=== PATIENT | female | born 1975 | race African-American/Black ===

== ENCOUNTER 2023-07-24 14:23 | Observation (INO) ==
[2023-07-24 15:26] VITALS: BMI 25.2
[2023-07-24] MEDS ORDERED: FLUARIX QUAD VACC (FOR AGE 6 MONTHS+) IM ONE (15:27)
[2023-07-24] MEDS ORDERED: TUSSIONEX PENNKINETIC SUSP PO PRN (18:14)
[2023-07-24 18:57] LABS: BASOPHILS # (AUTO) 0.1 X10^3/uL (0.0-0.1); BASOPHILS % (AUTO) 1.4 % (0.2-1.0); EOSINOPHILS # (AUTO) 0.3 x10^3/uL (0.0-0.2); HEMATOCRIT 41.1 % (36.0-47.0); HEMOGLOBIN 13.5 g/dL (12.0-16.0); LYMPHOCYTES # (AUTO) 1.8 X10^3/uL (1.3-2.9); LYMPHOCYTES % (AUTO) 36.7 % (21.0-51.0); MEAN CORPUSCULAR HEMOGLOBIN 28.1 pg (27.0-34.0); MEAN CORPUSCULAR HGB CONC 32.7 g/dL (33.0-35.0); MEAN CORPUSCULAR VOLUME 85.7 fL (80.0-100.0); MEAN PLATELET VOLUME 7.5 fL (7.4-11.0); MONOCYTES # (AUTO) 0.4 x10^3/uL (0.3-0.8); MONOCYTES % (AUTO) 8.8 % (0.0-13.0); NEUTROPHILS # (AUTO) 2.3 x10^3/uL (2.2-4.8); NEUTROPHILS % (AUTO) 47.1 % (42.0-75.0); PLATELET COUNT 321 X10^3/uL (150.0-450.0); RED CELL DISTRIBUTION WIDTH 15.3 % (11.6-16.5)
[2023-07-24 19:11] LABS: ALANINE AMINOTRANSFERASE 16 Units/L (12-78); ALBUMIN 3.7 g/dL (3.4-5.0); ALKALINE PHOSPHATASE 60 Units/L (46-116); ASPARTATE AMINO TRANSFERASE 13 Units/L (15-37); BLOOD UREA NITROGEN 9 mg/dL (7-18); CALCIUM 8.9 mg/dL (8.5-10.1); CARBON DIOXIDE 29.5 mmol/L (21-32); CHLORIDE 99 mmol/L (98-107); CREATININE 0.85 mg/dL (0.55-1.02); GLUCOSE 76 mg/dL (65-99); POTASSIUM 3.3 mmol/L (3.5-5.1); SODIUM 138 mmol/L (136-145); TOTAL PROTEIN 8.4 g/dL (6.4-8.2); eGFR NON BLACK RACES > 60 (>60)
[2023-07-24] MEDS ORDERED: NS 1/2 1,000 ML IV 1,000 ML IV ONE (19:49)
[2023-07-24] MEDS: VSL#3 PO SCH (20:12)
[2023-07-24] MEDS: ROBITUSSIN DM PO SCH (20:12)
[2023-07-24] MEDS: ZyrTEC TAB 10 MG PO SCH (20:12)
[2023-07-24] MEDS: LEVAQUIN PREMIX IV 750 MG 750 MG/150 ML BAG IV SCH (20:14)
[2023-07-24] MEDS: NS 1/2 1,000 ML IV 1,000 ML IV SCH (20:14)
[2023-07-24] MEDS: ELIQUIS PO SCH (20:17)
[2023-07-24] MEDS: HYDROCHLOROTHIAZIDE 25 MG TAB PO SCH (20:19)
[2023-07-24] MEDS ORDERED: MICRO K EXTEN CAP 10 MEQ PO SCH (21:00)
[2023-07-24] MEDS: SOLU-Medrol 40 MG VIAL IVP SCH (23:00)
--- NOTE | 2023-07-25 05:29 | RAD ---
HISTORYPNEUMONIA Relevant Clinical InformationSTUDYCHEST, PA/LAT ADULTCOMPARISONNoneFINDINGSThe trachea is midline. The cardiac silhouette is unremarkable. The lungs are clear without focal infiltrate or effusion. The bony thorax is unremarkable. There is mild dextroscoliosis of the mid thoracic spine.IMPRESSIONNo acute cardiopulmonary findings .Electronically signed by: Marcos Dave (Jul 25, 2023 05:27:54)
[2023-07-25 05:33] LABS: BASOPHILS # (AUTO) 0.1 X10^3/uL (0.0-0.1); BASOPHILS % (AUTO) 2.2 % (0.2-1.0); EOSINOPHILS # (AUTO) 0.3 x10^3/uL (0.0-0.2); EOSINOPHILS % (AUTO) 6.9 % (0.9-2.9); HEMATOCRIT 36.1 % (36.0-47.0); LYMPHOCYTES # (AUTO) 1.4 X10^3/uL (1.3-2.9); LYMPHOCYTES % (AUTO) 31.6 % (21.0-51.0); MEAN CORPUSCULAR HEMOGLOBIN 28.1 pg (27.0-34.0); MEAN CORPUSCULAR HGB CONC 33.1 g/dL (33.0-35.0); MEAN CORPUSCULAR VOLUME 84.9 fL (80.0-100.0); MEAN PLATELET VOLUME 7.5 fL (7.4-11.0); MONOCYTES # (AUTO) 0.5 x10^3/uL (0.3-0.8); MONOCYTES % (AUTO) 10.9 % (0.0-13.0); NEUTROPHILS # (AUTO) 2.2 x10^3/uL (2.2-4.8); NEUTROPHILS % (AUTO) 48.4 % (42.0-75.0); PLATELET COUNT 288 X10^3/uL (150.0-450.0); RED BLOOD COUNT 4.26 X10^6/uL (3.5-5.4); RED CELL DISTRIBUTION WIDTH 15.2 % (11.6-16.5); WHITE BLOOD COUNT 4.5 X10^3/uL (3.6-10.0)
[2023-07-25] MEDS: SOLU-Medrol 40 MG VIAL IVP SCH ×3 (05:45→21:15)
[2023-07-25 05:56] LABS: ALANINE AMINOTRANSFERASE 15 Units/L (12-78); ALBUMIN 3.1 g/dL (3.4-5.0); ALKALINE PHOSPHATASE 50 Units/L (46-116); ASPARTATE AMINO TRANSFERASE 10 Units/L (15-37); BLOOD UREA NITROGEN 9 mg/dL (7-18); CALCIUM 8.2 mg/dL (8.5-10.1); CARBON DIOXIDE 31.1 mmol/L (21-32); CHLORIDE 100 mmol/L (98-107); COR CA(FOR HYPOALB) 8.9 mg/dL (8.5-10.1); CREATININE 0.78 mg/dL (0.55-1.02); GLUCOSE 86 mg/dL (65-99); POTASSIUM 3.3 mmol/L (3.5-5.1); SODIUM 136 mmol/L (136-145); TOTAL PROTEIN 7.3 g/dL (6.4-8.2); eGFR NON BLACK RACES > 60 (>60)
--- NOTE | 2023-07-25 06:02 | RAD ---
HISTORYRSV, SOB Relevant Clinical InformationSTUDYCHEST, 1 [id number]/26/2023FINDINGSThe trachea is midline. The cardiac silhouette is unremarkable. The lungs are clear without focal infiltrate or effusion. The bony thorax is unremarkable. Mild dextroscoliosis mid thoracic spine.IMPRESSIONNo acute cardiopulmonary findings .Electronically signed by: Marcos Dave (Jul 25, 2023 06:01:12)
[2023-07-25] MEDS ORDERED: NS 1/2 1,000 ML IV 1,000 ML IV ONE ×3 (06:11→09:09)
[2023-07-25] MEDS: NS 1/2 1,000 ML IV 1,000 ML IV SCH ×4 (06:20→21:59)
[2023-07-25] MEDS ORDERED: CONSULT PHARMACY - POTASSIUM & MAGNESIUM XX SCH (07:00)
[2023-07-25] MEDS: DUONEB 0.5 MG/3 MG (3 mL) NEB SCH ×4 (08:49→20:05)
[2023-07-25] MEDS: PULMICORT NEB TX 0.5 MG NEB SCH ×2 (08:49→20:05)
[2023-07-25] MEDS: K-DUR TAB 20 MEQ PO SCH ×2 (09:34→10:54)
[2023-07-25] MEDS: ELIQUIS PO SCH ×2 (09:34→20:51)
[2023-07-25] MEDS: NORVASC TAB 10 MG PO SCH (09:34)
[2023-07-25] MEDS: VSL#3 PO SCH (09:34)
[2023-07-25] MEDS: ROBITUSSIN DM PO SCH ×4 (09:34→20:51)
[2023-07-25] MEDS: HYDROCHLOROTHIAZIDE 25 MG TAB PO SCH ×2 (09:35→20:51)
[2023-07-25] MEDS: TYLENOL 325 MG TAB PO PRN ×2 (10:55→16:00)
--- NOTE | 2023-07-25 19:56 | DR.UPDATE ---
H&P Update Prescription drug monitoring program results: PDMP reviewed and no concerns identified H&P Reviewed: Yes Any changes to H&P?: Yes Changes noted:: IS A 48 YEAR OLD PATIENT OF OURS. SHE HAS A PMH OF CATARACTS, VASOVAGAL SYNDROME, RHEUMATOID ARTHRITIS, MONOCLONAL GAMMOPATHY , ANTIPHOSPHOLIPID ANTIBODIES, , HYSTERECTOMY, HIP REPLACEMENT X 3. SHE WAS A DIRECT ADMISSION FOR TREATMENT OF ACUTE BRONCHITIS, FAILED OUTPATIENT TREATMENT. HER INITIAL SYMPTOMS OF FEVER, COUGH, AND SHORTNESS OF BREATH STARTED ON 07/11/23. SHE WAS STARTED ON AUGMENTIN 875/125 MG BID X 7 DAYS AT THAT TIME FOR TX OF SINUSITIS. SHE RETURNED LAST WEEK. AIT RESPIRATORY PANEL WAS DONE AT THAT TIME. SHE WAS POSITIVE FOR RSV. SHE WAS GIVEN COUGH MEDICATION, FLONASE, AND CEFDINIR 300MG BID AT THAT TIME. SHE DENIES IMPROVEMENT IN SYMPTOMS DESPITE COMPLIANCE WITH MEDICATIONS. ON ADMISSION, HER VITALS WERE: 98.3-83-18-97%-123/70. LABS WERE OBTAINED. WBC 5.0, RBC 4.80, HGB 13.5, HCT 41.1, PLT COUNT 321, SODIUM 138, POTASSIUM 3.3, CHLORIDE 99, BUN 9, CREATININE 0.85, GLUCOSE 76, CALCIUM 8.9, TOTAL BILI 0.30, AST 13, ALT 16, ALK PHOS 60, TOTAL PROTEIN 8.4, ALBUMIN 3.7. COVID, RSV, AND INFLUENZA SWABS WERE NEGATIVE. AIT SWAB WAS SENT OUT. BLOOD CULTURES WERE SET UP. A CHEST XRAY WAS OBTAINED AND REVEALED: No acute cardiopulmonary findings. ON ADMISSION, SHE WAS STARTED ON NS AT 75 ML/HR, LEVAQUIN 750MG IV DAILY, SOLU-MEDROL 80MG IV Q8H, DUONEBS QID, PULMICORT NEBS BID, TUSSIONEX 5ML Q12H PRN, TUSSIONEX 5ML Q12H PRN, ROBITUSSIN DM 10ML QID, PROBIOTICS DAILY, AND TYLENOL 650MG PO Q4H PRN. HER HOME MEDICATIONS OF NORVASC, ELIQUIS, ZYRTEC, HCTZ, AND POTASSIUM CHLORIDE WERE RESUMED. OTHERWISE, WE PLAN TO FOLLOW UP WITH AM LABS AND CHEST XRAY AND CONTINUE TO MONITOR. TIME SPENT ON CLINICAL ASSESSMENT, REVIEWING LABS AND IMAGING, DECISION MAKING, AND DOCUMENTATION GREATER THAN 75 MINUTES. Patient was examined?: Yes Vital Signs: Temp Pulse Pulse Resp BP Pulse Ox O2 Del Method 07/25/23 17:00 18 07/25/23 16:00 98.3 F 95 H 18 122/66 99 Room Air 07/25/23 16:00 18 07/25/23 12:00 98.3 F 100 H 18 123/63 100 Room Air 07/25/23 11:52 18 07/25/23 10:55 18 07/25/23 08:49 87 98 07/25/23 08:49 Room Air 07/25/23 07:00 Room Air 07/25/23 07:44 98.0 F 68 18 113/61 99 Room Air 07/25/23 04:00 98.7 F 73 18 113/67 100 Room Air 07/25/23 00:00 97.8 F 67 18 116/61 100 Room Air 07/24/23 21:53 Room Air 07/24/23 20:00 98.3 F 83 18 123/70 97 Room Air 07/24/23 19:00 Room Air 07/24/23 20:00 98.3 F 83 18 123/70 97 07/24/23 18:39 62 20 98 Room Air 07/24/23 16:39 Room Air 07/24/23 15:27 Room Air
[2023-07-25] MEDS: MICRO K EXTEN CAP 10 MEQ PO SCH (20:51)
[2023-07-25] MEDS: ZyrTEC TAB 10 MG PO SCH (20:51)
[2023-07-25] MEDS: LEVAQUIN PREMIX IV 750 MG 750 MG/150 ML BAG IV SCH (20:51)
[2023-07-26] MEDS ORDERED: NS 1/2 1,000 ML IV 1,000 ML IV ONE (02:00)
[2023-07-26] MEDS: NS 1/2 1,000 ML IV 1,000 ML IV SCH ×2 (05:08→12:38)
[2023-07-26] MEDS: SOLU-Medrol 40 MG VIAL IVP SCH (05:08)
[2023-07-26 05:22] LABS: BASOPHILS # (AUTO) 0.1 X10^3/uL (0.0-0.1); BASOPHILS % (AUTO) 0.7 % (0.2-1.0); HEMATOCRIT 37.5 % (36.0-47.0); HEMOGLOBIN 12.3 g/dL (12.0-16.0); LYMPHOCYTES % (AUTO) 10.3 % (21.0-51.0); MEAN CORPUSCULAR HEMOGLOBIN 27.9 pg (27.0-34.0); MEAN CORPUSCULAR HGB CONC 32.9 g/dL (33.0-35.0); MEAN CORPUSCULAR VOLUME 84.8 fL (80.0-100.0); MEAN PLATELET VOLUME 7.5 fL (7.4-11.0); MONOCYTES # (AUTO) 0.3 x10^3/uL (0.3-0.8); MONOCYTES % (AUTO) 2.7 % (0.0-13.0); NEUTROPHILS # (AUTO) 8.3 x10^3/uL (2.2-4.8); NEUTROPHILS % (AUTO) 86.3 % (42.0-75.0); PLATELET COUNT 297 X10^3/uL (150.0-450.0); RED BLOOD COUNT 4.42 X10^6/uL (3.5-5.4); RED CELL DISTRIBUTION WIDTH 15.1 % (11.6-16.5); WHITE BLOOD COUNT 9.6 X10^3/uL (3.6-10.0)
[2023-07-26 05:39] LABS: ALANINE AMINOTRANSFERASE 10 Units/L (12-78); ALBUMIN 3.1 g/dL (3.4-5.0); ALKALINE PHOSPHATASE 51 Units/L (46-116); ASPARTATE AMINO TRANSFERASE 10 Units/L (15-37); BLOOD UREA NITROGEN 8 mg/dL (7-18); CALCIUM 8.2 mg/dL (8.5-10.1); CHLORIDE 102 mmol/L (98-107); COR CA(FOR HYPOALB) 8.9 mg/dL (8.5-10.1); COR NA(FOR HYPERGLY) 138 mmol/L (136-145); CREATININE 0.66 mg/dL (0.55-1.02); GLUCOSE 129 mg/dL (65-99); POTASSIUM 3.6 mmol/L (3.5-5.1); SODIUM 137 mmol/L (136-145); TOTAL PROTEIN 7.4 g/dL (6.4-8.2); eGFR NON BLACK RACES > 60 (>60)
[2023-07-26] MEDS ORDERED: CONSULT PHARMACY - POTASSIUM & MAGNESIUM XX SCH (07:00)
[2023-07-26] MEDS: PULMICORT NEB TX 0.5 MG NEB SCH (08:40)
[2023-07-26] MEDS: DUONEB 0.5 MG/3 MG (3 mL) NEB SCH (08:40)
[2023-07-26 09:43] VITALS: O2SAT 98
[2023-07-26] MEDS: ROBITUSSIN DM PO SCH ×2 (09:58→12:38)
[2023-07-26] MEDS: HYDROCHLOROTHIAZIDE 25 MG TAB PO SCH (09:58)
[2023-07-26] MEDS: MICRO K EXTEN CAP 10 MEQ PO SCH (09:58)
[2023-07-26] MEDS: ELIQUIS PO SCH (09:58)
[2023-07-26] MEDS: VSL#3 PO SCH (09:58)
[2023-07-26] MEDS: NORVASC TAB 10 MG PO SCH (09:58)
[2023-07-26] MEDS: TYLENOL 325 MG TAB PO PRN (09:59)
--- NOTE | 2023-07-26 10:38 | RAD ---
EXAM:AP chestHISTORY:SOBCOMPARISON:July 25, 2023FINDINGS:Stable normal heart size with clear lungs and pleural spaces.IMPRESSION:No significant interval change or acute findings.THIS IS AN ELECTRONICALLY VERIFIED FINAL [id number]/26/2023 10:18 AM - Electronically signed by Rufino Cruz MD
[2023-07-26] MEDS ORDERED: K-DUR TAB 20 MEQ PO SCH (11:00)
[2023-07-26 12:06] VITALS: BP 135/82; PULSE 92; TEMP 98.2
[2023-07-26 12:16] VITALS: RESP 20
--- NOTE | 2023-07-29 16:39 | W.DIS.FURT ---
Summary of Discharge Discharge Summary of Date Date of Exam: 07/26/23 Admission Date Date of Admission: 07/25/23 Admission Diagnosis Hospital Course: Ms. Sierra is a 48-year-old female with a past medical history of vasovagal syndrome, rheumatoid arthritis antiphospholipid antibodies and monoclonal gammopathy presented with upper respiratory symptoms including cough and shortness of breath. She was treated outpatient for bronchitis with Augmentin for 7 days and then came back with similar symptoms a week later. AIT panel done outpatient was positive for RSV. She was then treated with cefdinir but continued to have worsening respiratory symptoms. Her vitals were stable and chest x-ray did not show any acute findings. COVID, RSV and flu swabs were negative. She was started on Levaquin and Solu-Medrol. She also received Duo Nebs and Pulmicort nebs and cough medicine. Patient was feeling better and ambulating in the room. She was not requiring any oxygen. She was stable to be discharged home on p.o. antibiotics and steroids. She will follow-up with PCP in 3 to 5 days. Vital Signs: Vital Signs (72 hours) 07/24/23 15:27 07/24/23 16:39 07/24/23 18:39 Temperature Pulse Rate 62 Pulse Rate [Left Radial] Respiratory Rate 20 Blood Pressure [Right Arm] O2 Sat by Pulse Oximetry 98 Oxygen Delivery Method Room Air Room Air Room Air 07/24/23 20:00 07/24/23 19:00 07/24/23 20:00 Temperature 98.3 F 98.3 F Pulse Rate Pulse Rate [Left Radial] 83 83 Respiratory Rate 18 18 Blood Pressure [Right Arm] 123/70 123/70 O2 Sat by Pulse Oximetry 97 97 Oxygen Delivery Method Room Air Room Air 07/24/23 21:53 07/25/23 00:00 07/25/23 04:00 Temperature 97.8 F 98.7 F Pulse Rate Pulse Rate [Left Radial] 67 73 Respiratory Rate 18 18 Blood Pressure [Right Arm] 116/61 113/67 O2 Sat by Pulse Oximetry 100 100 Oxygen Delivery Method Room Air Room Air Room Air 07/25/23 07:44 07/25/23 07:00 07/25/23 08:49 Temperature 98.0 F Pulse Rate Pulse Rate [Left Radial] 68 Respiratory Rate 18 Blood Pressure [Right Arm] 113/61 O2 Sat by Pulse Oximetry 99 Oxygen Delivery Method Room Air Room Air Room Air 07/25/23 08:49 07/25/23 10:55 07/25/23 11:52 Temperature Pulse Rate 87 Pulse Rate [Left Radial] Respiratory Rate 18 18 Blood Pressure [Right Arm] O2 Sat by Pulse Oximetry 98 Oxygen Delivery Method 07/25/23 12:00 07/25/23 16:00 07/25/23 16:00 Temperature 98.3 F 98.3 F Pulse Rate Pulse Rate [Left Radial] 100 H 95 H Respiratory Rate 18 18 18 Blood Pressure [Right Arm] 123/63 122/66 O2 Sat by Pulse Oximetry 100 99 Oxygen Delivery Method Room Air Room Air 07/25/23 17:00 07/25/23 20:05 07/25/23 20:05 Temperature Pulse Rate 111 H Pulse Rate [Left Radial] Respiratory Rate 18 Blood Pressure [Right Arm] O2 Sat by Pulse Oximetry 93 L Oxygen Delivery Method Room Air 07/25/23 20:00 07/25/23 19:00 07/26/23 00:00 Temperature 98.6 F 97.7 F Pulse Rate Pulse Rate [Left Radial] 98 H 81 Respiratory Rate 20 20 Blood Pressure [Right Arm] 124/64 118/67 O2 Sat by Pulse Oximetry 97 98 Oxygen Delivery Method Room Air Room Air Room Air 07/26/23 04:00 07/26/23 08:40 07/26/23 08:40 Temperature 97.6 F Pulse Rate 96 H Pulse Rate [Left Radial] 89 Respiratory Rate 20 Blood Pressure [Right Arm] 136/73 O2 Sat by Pulse Oximetry 99 98 Oxygen Delivery Method Room Air Room Air 07/26/23 09:59 Temperature Pulse Rate Pulse Rate [Left Radial] Respiratory Rate 18 Blood Pressure [Right Arm] O2 Sat by Pulse Oximetry Oxygen Delivery Method Labs: Laboratory Last Values WBC 9.6 X10^3/uL (3.6-10.0) 07/26/23 04:40 RBC 4.42 X10^6/uL (3.5-5.4) 07/26/23 04:40 Hgb 12.3 g/dL (12.0-16.0) 07/26/23 04:40 Hct 37.5 % (36.0-47.0) 07/26/23 04:40 MCV 84.8 fL (80.0-100.0) 07/26/23 04:40 MCH 27.9 pg (27.0-34.0) 07/26/23 04:40 MCHC 32.9 g/dL (33.0-35.0) L 07/26/23 04:40 RDW 15.1 % (11.6-16.5) 07/26/23 04:40 Plt Count 297 X10^3/uL (150.0-450.0) 07/26/23 04:40 MPV 7.5 fL (7.4-11.0) 07/26/23 04:40 Neut % (Auto) 86.3 % (42.0-75.0) H 07/26/23 04:40 Lymph % (Auto) 10.3 % (21.0-51.0) L 07/26/23 04:40 Snyder % (Auto) 2.7 % (0.0-13.0) 07/26/23 04:40 Eos % (Auto) 0.0 % (0.9-2.9) L 07/26/23 04:40 Baso % (Auto) 0.7 % (0.2-1.0) 07/26/23 04:40 Neut # (Auto) 8.3 x10^3/uL (2.2-4.8) H 07/26/23 04:40 Lymph # (Auto) 1.0 X10^3/uL (1.3-2.9) L 07/26/23 04:40 Snyder # (Auto) 0.3 x10^3/uL (0.3-0.8) 07/26/23 04:40 Eos # (Auto) 0.0 x10^3/uL (0.0-0.2) 07/26/23 04:40 Baso # (Auto) 0.1 X10^3/uL (0.0-0.1) 07/26/23 04:40 Absolute Nucleated RBC 0.1 /100WBC 07/26/23 04:40 Sodium 137 mmol/L (136-145) 07/26/23 04:40 Corrected Sodium 138 mmol/L (136-145) 07/26/23 04:40 Potassium 3.6 mmol/L (3.5-5.1) 07/26/23 04:40 Chloride 102 mmol/L (98-107) 07/26/23 04:40 Carbon Dioxide 28.0 mmol/L (21-32) 07/26/23 04:40 BUN 8 mg/dL (7-18) 07/26/23 04:40 Creatinine 0.66 mg/dL (0.55-1.02) 07/26/23 04:40 Est GFR (MDRD) Af Amer > 60 (>60) 07/26/23 04:40 Est GFR (MDRD) Non-Af > 60 (>60) 07/26/23 04:40 Glucose 129 mg/dL (65-99) H 07/26/23 04:40 Calcium 8.2 mg/dL (8.5-10.1) L 07/26/23 04:40 Corrected Calcium 8.9 mg/dL (8.5-10.1) 07/26/23 04:40 Magnesium 2.2 mg/dL (2.0-2.9) 07/26/23 04:40 Total Bilirubin 0.20 mg/dL (0.2-1.0) 07/26/23 04:40 AST 10 Units/L (15-37) L 07/26/23 04:40 ALT 10 Units/L (12-78) L 07/26/23 04:40 Alkaline Phosphatase 51 Units/L (46-116) 07/26/23 04:40 Total Protein 7.4 g/dL (6.4-8.2) 07/26/23 04:40 Albumin 3.1 g/dL (3.4-5.0) L 07/26/23 04:40 Globulin 4.3 g/dL (2.5-4.5) 07/26/23 04:40 Albumin/Globulin Ratio 0.7 Ratio (1.1-2.1) L 07/26/23 04:40 SARS-CoV-2 (PCR) Negative (NEGATIVE) 07/25/23 05:30 Influenza Type A (PCR) Negative (NEGATIVE) 07/25/23 05:30 Influenza Type B (PCR) Negative (NEGATIVE) 07/25/23 05:30 RSV (PCR) Negative (NEGATIVE) 07/25/23 05:30 Reason For Visit: RSV, FAILED OUTPT TX, MALAISE, FEVER, SOB Discharge Diagnosis All Active Problems (Updated 07/26/23 @ 11:42 by Beverly Kang) Bronchitis (Acute) Plan of Treatment: Continue with present treatment and follow up plan. Pt is to keep follow up appointment as instructed and take medications as ordered. Discharge Medications Discharge Medications: No Known Allergies Allergy (Verified 07/24/23 15:31) CONTINUE taking the following medications amlodipine 10 mg tablet 10 mg PO QDAY 07/24/23 [History] apixaban 5 mg tablet (Eliquis) 5 mg PO BID 07/24/23 [History] cetirizine 10 mg tablet 10 mg PO QPM 07/24/23 [History] hydrochlorothiazide 25 mg tablet 25 mg PO BID 07/24/23 [History] potassium chloride 10 mEq tablet,extended release 10 meq PO BID 07/24/23 [History] New Prescriptions albuterol sulfate 90 mcg/actuation aerosol inhaler 2 puff inhalation Q6H PRN shortness of breath or wheezing #6.7 grams 07/26/23 [Rx] levofloxacin 750 mg tablet 750 mg PO QDAY 4 days #4 tabs 07/26/23 [Rx] methylprednisolone 4 mg tablets in a dose pack See Rx Instructions PO .COMPLEX #21 ea 07/26/23 [Rx] Discharge Disposition Discharge Disposition: To home Discharge Condition: Stable Discharge Plan Discharge Plan Hospital Course: Ms. Sierra is a 48-year-old female with a past medical history of vasovagal syndrome, rheumatoid arthritis antiphospholipid antibodies and monoclonal gammopathy presented with upper respiratory symptoms including cough and shortness of breath. She was treated outpatient for bronchitis with Augmentin for 7 days and then came back with similar symptoms a week later. AIT panel done outpatient was positive for RSV. She was then treated with cefdinir but continued to have worsening respiratory symptoms. Her vitals were stable and chest x-ray did not show any acute findings. COVID, RSV and flu swabs were negative. She was started on Levaquin and Solu-Medrol. She also received DuoNebs and Pulmicort nebs and cough medicine. Patient was feeling better and ambulating in the room. She was not requiring any oxygen. She was stable to be discharged home on p.o. antibiotics and steroids. She will follow-up with PCP in 3 to 5 days. Patient Disposition: 01 HOME, SELF-CARE Condition: Stable Health Concerns: Post Hospitalization: new medications and changes needed to prevent readmission or further decline. Pt educated and given instructions on all concerns. Care Plan Goals: Problem: Infection Goal: Temperature within normal limits. Resolved infection. Instructions: Follow provided instructions. Follow up with primary physician as directed. Contact primary care physician or report to the closest Emergency Room if condition worsens. Plan of Treatment: Continue with present treatment and follow up plan. Pt is to keep follow up appointment as instructed and take medications as ordered. Prescription drug monitoring program results: PDMP reviewed and no concerns identified Prescriptions: New levofloxacin 750 mg tablet 750 mg PO QDAY 4 Days Qty: 4 0RF methylprednisolone 4 mg tablets,dose pack See Rx Instructions .ROUTE .COMPLEX Qty: 21 0RF Rx Instructions: orally per package directions albuterol sulfate 90 mcg/actuation HFA aerosol inhaler 2 puff inhalation Q6H PRN (Reason: shortness of breath or wheezing) Qty: 6.7 0RF Continued cetirizine 10 mg tablet 10 mg PO QPM potassium chloride 10 mEq tablet extended release 10 meq PO BID amlodipine 10 mg tablet 10 mg PO QDAY hydrochlorothiazide 25 mg tablet 25 mg PO BID Eliquis 5 mg tablet 5 mg PO BID Orders to Discharge Patient Discharge Orders: Discharge (Routine); Ordered 07/26/23 Ordered By: Beverly Kang Follow ups/Referrals Follow ups/Referrals: Karma Foley [Nurse Practitioner] - 07/31/23 10:50 am Instructions Instructions: Fever, Adult, Cough, Adult, [id number], Weakness, Respiratory Syncytial Virus Infection, Adult Stand Alone Forms: Excuse From Work or School, Post Hospital Follow Up Care
== END 2023-07-26 12:50 | disposition home or self-care (01) ==
LOC: MED/SURG
PROVIDERS: ADMIT Internal Medicine; ATTEND Internal Medicine
DX: J20.8 Acute bronchitis due to other specified organisms

== ENCOUNTER 2024-01-13 16:58 | Observation (INO) ==
--- NOTE | 2024-01-13 18:34 | EKG ---
Test Reason : dyspnea Blood Pressure : */* mmHG Vent. Rate : 95 BPM Atrial Rate : 95 BPM P-R Int : 138 ms QRS Dur : 76 ms QT Int : 368 ms P-R-T Axes : 78 28 12 degrees QTc Int : 462 ms Normal sinus rhythm Normal ECG When compared with ECG of 01-JAN-2024 14:42, Vent. rate has increased BY 34 BPM T wave inversion no longer evident in Anterior leads Confirmed by Arjun Jean Baptiste MD ([id number]) on 01/14/2024 7:39:41 AM Referred By: Confirmed By: Arjun Jean Baptiste MD
[2024-01-13 18:43] LABS: BASOPHILS # (AUTO) 0.1 X10^3/uL (0.0-0.1); BASOPHILS % (AUTO) 1.2 % (0.2-1.0); EOSINOPHILS # (AUTO) 0.2 x10^3/uL (0.0-0.2); EOSINOPHILS % (AUTO) 3.2 % (0.9-2.9); HEMOGLOBIN 13.1 g/dL (12.0-16.0); LYMPHOCYTES # (AUTO) 2.3 X10^3/uL (1.3-2.9); LYMPHOCYTES % (AUTO) 30.7 % (21.0-51.0); MEAN CORPUSCULAR HEMOGLOBIN 27.5 pg (27.0-34.0); MEAN CORPUSCULAR HGB CONC 32.8 g/dL (33.0-35.0); MEAN CORPUSCULAR VOLUME 83.8 fL (80.0-100.0); MEAN PLATELET VOLUME 7.3 fL (7.4-11.0); MONOCYTES # (AUTO) 0.6 x10^3/uL (0.3-0.8); MONOCYTES % (AUTO) 8.5 % (0.0-13.0); NEUTROPHILS # (AUTO) 4.2 x10^3/uL (2.2-4.8); NEUTROPHILS % (AUTO) 56.4 % (42.0-75.0); PLATELET COUNT 341 X10^3/uL (150.0-450.0); RED BLOOD COUNT 4.77 X10^6/uL (3.5-5.4); RED CELL DISTRIBUTION WIDTH 16.1 % (11.6-16.5); WHITE BLOOD COUNT 7.4 X10^3/uL (3.6-10.0)
[2024-01-13 18:51] LABS: INR 1.01 (0.8-1.3)
[2024-01-13 19:00] LABS: ALANINE AMINOTRANSFERASE 13 Units/L (12-78); ALBUMIN 3.7 g/dL (3.4-5.0); ALKALINE PHOSPHATASE 59 Units/L (46-116); ASPARTATE AMINO TRANSFERASE 14 Units/L (15-37); BLOOD UREA NITROGEN 8 mg/dL (7-18); CALCIUM 8.9 mg/dL (8.5-10.1); CARBON DIOXIDE 30.4 mmol/L (21-32); CHLORIDE 99 mmol/L (98-107); CREATININE 0.71 mg/dL (0.55-1.02); GLUCOSE 87 mg/dL (65-99); SODIUM 137 mmol/L (136-145); TOTAL PROTEIN 8.3 g/dL (6.4-8.2); eGFR NON BLACK RACES > 60 (>60)
[2024-01-13 19:01] LABS: POTASSIUM 2.8 mmol/L (3.5-5.1)
[2024-01-13] MEDS: HEPARIN SODIUM INJ 5000 UNITS IVP ONE (19:30)
[2024-01-13] MEDS: HEPARIN SODIUM IN D5W 25,000 UNITS/500 ML BAG IV PRN (19:30)
[2024-01-13] MEDS ORDERED: CONSULT PHARMACY - POTASSIUM & MAGNESIUM XX SCH (20:00)
[2024-01-13] MEDS: K-DUR TAB 20 MEQ PO SCH (20:55)
[2024-01-13] MEDS: MORPHINE SULFATE INJ 2 MG INJ IVP PRN (21:02)
--- NOTE | 2024-01-13 23:28 | RAD ---
EXAM:CHEST, 1 VIEWHISTORY:chest pain;COMPARISON:January 01, 2024TECHNIQUE:1 frontal view of the chestFINDINGS:Scoliotic curvature of the thoracic spine. The heart size is upper limits of normal. There are interstitial infiltrates present bilaterally. No focal airspace consolidation or pneumothorax..IMPRESSION:Mild bilateral interstitial infiltrates are nonspecific and could represent mild interstitial edema. No focal consolidation or pneumothorax.THIS IS AN ELECTRONICALLY VERIFIED FINAL REPORT01/13/2024 11:25 PM - Electronically signed by Jett Mitchell MD
--- NOTE | 2024-01-14 02:46 | EKG ---
Test Reason : Chest Pain Blood Pressure : */* mmHG Vent. Rate : 66 BPM Atrial Rate : 66 BPM P-R Int : 138 ms QRS Dur : 74 ms QT Int : 458 ms P-R-T Axes : 63 2 14 degrees QTc Int : 480 ms Normal sinus rhythm Normal ECG When compared with ECG of 13-JAN-2024 17:51, (Unconfirmed) No significant change was found Confirmed by Arjun Jean Baptiste MD ([id number]) on 01/14/2024 7:38:57 AM Referred By: Confirmed By: Arjun Jean Baptiste MD
[2024-01-14 03:43] LABS: BASOPHILS # (AUTO) 0.1 X10^3/uL (0.0-0.1); EOSINOPHILS # (AUTO) 0.3 x10^3/uL (0.0-0.2); EOSINOPHILS % (AUTO) 4.4 % (0.9-2.9); HEMATOCRIT 37.4 % (36.0-47.0); HEMOGLOBIN 12.2 g/dL (12.0-16.0); LYMPHOCYTES # (AUTO) 1.9 X10^3/uL (1.3-2.9); MEAN CORPUSCULAR HEMOGLOBIN 27.4 pg (27.0-34.0); MEAN CORPUSCULAR HGB CONC 32.6 g/dL (33.0-35.0); MEAN PLATELET VOLUME 7.3 fL (7.4-11.0); MONOCYTES # (AUTO) 0.8 x10^3/uL (0.3-0.8); MONOCYTES % (AUTO) 11.2 % (0.0-13.0); NEUTROPHILS # (AUTO) 3.7 x10^3/uL (2.2-4.8); NEUTROPHILS % (AUTO) 55.4 % (42.0-75.0); PLATELET COUNT 312 X10^3/uL (150.0-450.0); RED BLOOD COUNT 4.45 X10^6/uL (3.5-5.4); RED CELL DISTRIBUTION WIDTH 15.7 % (11.6-16.5); WHITE BLOOD COUNT 6.8 X10^3/uL (3.6-10.0)
[2024-01-14 03:46] VITALS: BMI 26.4
[2024-01-14 03:52] LABS: ALANINE AMINOTRANSFERASE 12 Units/L (12-78); ALKALINE PHOSPHATASE 51 Units/L (46-116); ASPARTATE AMINO TRANSFERASE 14 Units/L (15-37); BLOOD UREA NITROGEN 8 mg/dL (7-18); CALCIUM 8.4 mg/dL (8.5-10.1); CARBON DIOXIDE 30.7 mmol/L (21-32); CHLORIDE 101 mmol/L (98-107); COR CA(FOR HYPOALB) 9.2 mg/dL (8.5-10.1); CREATININE 0.66 mg/dL (0.55-1.02); GLUCOSE 97 mg/dL (65-99); POTASSIUM 3.2 mmol/L (3.5-5.1); SODIUM 138 mmol/L (136-145); eGFR NON BLACK RACES > 60 (>60)
[2024-01-14] MEDS: HEPARIN SODIUM INJ 5000 UNITS IVP ONE ×2 (04:08→17:00)
--- NOTE | 2024-01-14 08:08 | EKG ---
Test Reason : Chest Pain Blood Pressure : */* mmHG Vent. Rate : 76 BPM Atrial Rate : 76 BPM P-R Int : 146 ms QRS Dur : 80 ms QT Int : 436 ms P-R-T Axes : 72 2 31 degrees QTc Int : 490 ms Normal sinus rhythm Poor R-wave progression ns t abnl Abnormal ECG When compared with ECG of 14-JAN-2024 02:21, t abnl new Confirmed by Arjun Jean Baptiste MD ([id number]) on 01/14/2024 11:21:53 AM Referred By: Confirmed By: Arjun Jean Baptiste MD
[2024-01-14] MEDS ORDERED: NS 250 ML IV 25 ML IV PRN (08:41)
[2024-01-14] MEDS: NORVASC TAB 10 MG PO SCH (10:44)
[2024-01-14] MEDS: ZOSYN VIAL 3.375 GRAMS 3.375 G in NS 100 ML IV 100 ML IV SCH (10:44)
--- NOTE | 2024-01-14 12:36 | CT ---
EXAM:CT HEAD WITHOUT CONTRASTHISTORY:right arm numbness;COMPARISON:None.TECHNIQUE:Axial CT images were obtained through the brain without contrast.All CT scans at this facility use dose modulation, iterative reconstruction, and/or weight based dosing when appropriate to reduce radiation dose to as low as reasonably achievable.FINDINGS:BRAIN: No evidence of acute infarct intra or extraaxial hemorrhage mass effect or hydrocephalus.CALVARIUM: NormalADDITIONAL FINDINGS: The visualized paranasal sinuses and mastoid air cells are clear. Orbits are grossly unremarkable.IMPRESSION:No evidence of acute intracranial process.THIS IS AN ELECTRONICALLY VERIFIED FINAL REPORT01/14/2024 12:32 PM - Electronically signed by Matt Solis MD
--- NOTE | 2024-01-14 13:06 | DR.H&P ---
H&P History & Physical for Day of: H&P Date: 01/14/24 Chief Complaint Chief Complaint: tachycardia, dyspnea Allergies Allergies Allergy/AdvReac Type Severity Reaction Status Date / Time No Known Allergies Allergy Verified 01/01/24 13:28 History of Present Illness History of Present Illness: Ms Sierra is a 48y/o female with a PMH of recurrent DVT, IVC filter, HTN, rheumatoid arthritis, antiphospholipid antibodies and MGUS was directly admitted from Dr James's office due to worsening dyspnea and tachycardia. She had COVID infection about 2 weeks ago and was seen in the ER 01/03/24 for right leg swelling and pain. US was negative for DVT. Patient had a repeat US on 01/07/24 which was also negative for DVT. Patient continued to have weakness and dyspnea so was seen in the PCP office yesterday. She was sent for CTA-chest outpatient and found to have PE. Patient was admitted for further management. She reports having 7 DVTs in her legs and is currently taking Eliquis. She used to be on warfarin but INR could not be within range so she was switched to Eliquis. She also has IVC filter and has never had a PE. She is currently seeing Device [facility] in [place] and is also referred for immunodeficiency work up due to recurrent URIs. Patient was admitted to ICU and started on heparin drip. She had some chest pain/tightness last night. She states she feels something pulling on the left chest area with numbness on side of her neck and left arm. She states pain is better this morning but numbness is still there in the left arm. 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 Labs/imaging reviewed. -Hgb 12.2 Trop x 3 (-) -CTA report from [place] scanned in: solitary thrombus in the distal right main pulmonary artery/segmental branch RLL. Clot burden low. -CXR: bilateral interstitial infiltrates Plan: continue ICU care, continue heparin drip as per protocol. Consult [facility]. Start Rosa, KEDAR panel. Will order CT-brain. Patient had an outpatient appointment with Dr Jean Baptiste for abnormal EKG this Friday, would like to see cardio while admitted. Derrell consult Dr Jean Baptiste. Replace electrolytes as per protocol. Monitor AM labs/imaging. Time spent for clinical assessment, reviewing labs/imaging, physical exam, decision making and documentation greater than 45 mins. Past Medical History Past Medical History: Arthritis, Hypertension and Kidney Stones Past Surgical History Surgical History: , Hysterectomy and Ortho Surgery Family History Family Medical History: Diabetes Mellitus, Cancer and Hypertension Social History Does patient currently use any type of tobacco product: No Have you used tobacco products in the last 12 months: No Type of Tobacco Use: None Does any household member use tobacco: No Alcohol Use: None Drug Use: None Medications Home Medications: Home Medications Medication Instructions Recorded Confirmed Type apixaban 5 mg tablet (Eliquis) 5 mg PO BID 07/24/23 01/13/24 History hydrochlorothiazide 25 mg tablet 25 mg PO BID 07/24/23 01/13/24 History potassium chloride 10 mEq 20 meq PO DAILY 07/24/23 01/13/24 History tablet,extended release amlodipine 10 mg tablet 10 mg PO QDAY 01/01/24 01/13/24 History Labs 01/14/24 03:30 01/14/24 03:30 Labs: Laboratory WBC 6.8 X10^3/uL (3.6-10.0) 01/14/24 03:30 RBC 4.45 X10^6/uL (3.5-5.4) 01/14/24 03:30 Hgb 12.2 g/dL (12.0-16.0) 01/14/24 03:30 Hct 37.4 % (36.0-47.0) 01/14/24 03:30 MCV 84.0 fL (80.0-100.0) 01/14/24 03:30 MCH 27.4 pg (27.0-34.0) 01/14/24 03:30 MCHC 32.6 g/dL (33.0-35.0) L 01/14/24 03:30 RDW 15.7 % (11.6-16.5) 01/14/24 03:30 Plt Count 312 X10^3/uL (150.0-450.0) 01/14/24 03:30 MPV 7.3 fL (7.4-11.0) L 01/14/24 03:30 Neut % (Auto) 55.4 % (42.0-75.0) 01/14/24 03:30 Lymph % (Auto) 28.0 % (21.0-51.0) 01/14/24 03:30 Douglas % (Auto) 11.2 % (0.0-13.0) 01/14/24 03:30 Eos % (Auto) 4.4 % (0.9-2.9) H 01/14/24 03:30 Baso % (Auto) 1.0 % (0.2-1.0) 01/14/24 03:30 Neut # (Auto) 3.7 x10^3/uL (2.2-4.8) 01/14/24 03:30 Lymph # (Auto) 1.9 X10^3/uL (1.3-2.9) 01/14/24 03:30 Douglas # (Auto) 0.8 x10^3/uL (0.3-0.8) 01/14/24 03:30 Eos # (Auto) 0.3 x10^3/uL (0.0-0.2) H 01/14/24 03:30 Baso # (Auto) 0.1 X10^3/uL (0.0-0.1) 01/14/24 03:30 Absolute Nucleated RBC 0.0 /100WBC 01/14/24 03:30 PT 13.1 SECONDS (11.8-14.3) 01/13/24 18:30 INR Target Range - 01/13/24 18:30 INR 1.01 (0.8-1.3) 01/13/24 18:30 APTT 73.3 SECONDS (22.9-36.5) H 01/14/24 10:30 PTT Comment - 01/14/24 10:30 Sodium 138 mmol/L (136-145) 01/14/24 03:30 Corrected Sodium TNP 01/14/24 03:30 Potassium 3.2 mmol/L (3.5-5.1) L 01/14/24 03:30 Chloride 101 mmol/L (98-107) 01/14/24 03:30 Carbon Dioxide 30.7 mmol/L (21-32) 01/14/24 03:30 BUN 8 mg/dL (7-18) 01/14/24 03:30 Creatinine 0.66 mg/dL (0.55-1.02) 01/14/24 03:30 Est GFR (MDRD) Af Amer > 60 (>60) 01/14/24 03:30 Est GFR (MDRD) Non-Af > 60 (>60) 01/14/24 03:30 Glucose 97 mg/dL (65-99) 01/14/24 03:30 Calcium 8.4 mg/dL (8.5-10.1) L 01/14/24 03:30 Corrected Calcium 9.2 mg/dL (8.5-10.1) 01/14/24 03:30 Magnesium 2.3 mg/dL (2.0-2.9) 01/13/24 18:30 Total Bilirubin 0.30 mg/dL (0.2-1.0) 01/14/24 03:30 AST 14 Units/L (15-37) L 01/14/24 03:30 ALT 12 Units/L (12-78) 01/14/24 03:30 Alkaline Phosphatase 51 Units/L (46-116) 01/14/24 03:30 Creatine Kinase 75 Units/L (26-192) 01/14/24 02:40 Troponin I High Sens 5.7 ng/L (4.0-60.0) 01/14/24 02:40 B-Natriuretic Peptide < 5.0 pg/mL (0-79) 01/13/24 18:30 Total Protein 7.0 g/dL (6.4-8.2) 01/14/24 03:30 Albumin 3.0 g/dL (3.4-5.0) L 01/14/24 03:30 Globulin 4.0 g/dL (2.5-4.5) 01/14/24 03:30 Albumin/Globulin Ratio 0.8 Ratio (1.1-2.1) L 01/14/24 03:30 Review of Systems Constitutional: No Symptoms Reported Eyes: No Symptoms Reported ENT: No Symptoms Reported Respiratory: Shortness of Breath and Pleuritic Pain Cardiovascular: Chest Pain Gastrointestinal: No Symptoms Reported Genitourinary: No Symptoms Reported Musculoskeletal: Arm Pain Skin: No Symptoms Reported Neurological: No Symptoms Reported Physical Exam Vital Signs: Vital Signs Temperature 98.4 F Temperature 98.2 F Pulse Rate 91 Pulse Rate 88 Pulse Rate 76 Pulse Rate 81 Pulse Rate 85 Pulse Rate 65 Pulse Rate 74 Pulse Rate 68 Pulse Rate 76 Pulse Rate 75 Pulse Rate 80 Pulse Rate 69 Pulse Rate 69 Pulse Rate 71 Pulse Rate 71 Pulse Rate 71 Pulse Rate 72 Pulse Rate 72 Pulse Rate 71 Pulse Rate 73 Pulse Rate 70 Pulse Rate 74 Pulse Rate 74 Pulse Rate 71 Pulse Rate 76 Respiratory Rate 20 Respiratory Rate 20 Respiratory Rate 20 Respiratory Rate 19 Respiratory Rate 15 Respiratory Rate 26 Respiratory Rate 17 Respiratory Rate 21 Respiratory Rate 18 Respiratory Rate 35 Respiratory Rate 15 Respiratory Rate 15 Respiratory Rate 18 Respiratory Rate 18 Respiratory Rate 18 Respiratory Rate 17 Respiratory Rate 17 Respiratory Rate 17 Respiratory Rate 21 Respiratory Rate 17 Respiratory Rate 17 Respiratory Rate 17 Respiratory Rate 18 Respiratory Rate 18 Blood Pressure 113/61 Blood Pressure 117/69 Blood Pressure 121/67 Blood Pressure 121/67 Blood Pressure 134/63 Blood Pressure 134/63 Blood Pressure 127/67 Blood Pressure 127/67 O2 Sat by Pulse Oximetry 99 O2 Sat by Pulse Oximetry 100 O2 Sat by Pulse Oximetry 98 O2 Sat by Pulse Oximetry 98 O2 Sat by Pulse Oximetry 99 O2 Sat by Pulse Oximetry 100 O2 Sat by Pulse Oximetry 100 O2 Sat by Pulse Oximetry 99 O2 Sat by Pulse Oximetry 98 O2 Sat by Pulse Oximetry 97 O2 Sat by Pulse Oximetry 99 O2 Sat by Pulse Oximetry 100 O2 Sat by Pulse Oximetry 100 O2 Sat by Pulse Oximetry 100 O2 Sat by Pulse Oximetry 100 O2 Sat by Pulse Oximetry 100 O2 Sat by Pulse Oximetry 100 O2 Sat by Pulse Oximetry 100 O2 Sat by Pulse Oximetry 100 O2 Sat by Pulse Oximetry 100 O2 Sat by Pulse Oximetry 100 O2 Sat by Pulse Oximetry 100 O2 Sat by Pulse Oximetry 100 O2 Sat by Pulse Oximetry 100 O2 Sat by Pulse Oximetry 100 Oriented: Normal Eyes: Normal Throat: Normal Respiratory: Clear Throughout Cardiovascular: Tachycardia Auscultation: Bowel Sounds: Normal Palpation: Normal Tenderness: Normal Skin: Normal Musculoskeletal: Normal Psychiatric: Anxiety Mood Description: Anxious Affect: Normal Speech Pattern: Clear and Appropriate Assessment/Plan (1) Pulmonary embolism: Qualifiers: Acute cor pulmonale presence: unspecified Chronicity: acute Pulmonary embolism type: unspecified Qualified Code(s): I26.99 - Other pulmonary embolism without acute cor pulmonale Status: Acute (2) HTN (hypertension): Qualifiers: Hypertension type: primary hypertension Qualified Code(s): I10 - Essential (primary) hypertension Status: Acute (3) Atelectasis: Status: Acute (4) Numbness of right hand: Status: Acute (5) History of DVT (deep vein thrombosis): Status: Acute (6) Presence of IVC filter: Status: Acute (7) Positive cardiolipin antibodies: Status: Acute Review H&P Reviewed: Yes Patient was examined?: Yes
--- NOTE | 2024-01-14 15:08 | DR.CONSULT ---
CONSULT Consultation for Day of: Date: 01/14/24 Chief Complaint Chief Complaint: sob/pleuritic cp/ evedence for PE on CTA Allergies Allergies Allergy/AdvReac Type Severity Reaction Status Date / Time No Known Allergies Allergy Verified 01/01/24 13:28 History of Present Illness History of Present Illness: 48 yo female- hypercoagulable w 7 dvts in past- has IVC filter, none for 15 plus years- also has htn- got covid few weeks ago- came to er twice for leg pain but doppler negative both times- sob/pleuritic cp last few days- CTA: clot in pulm artery- was faithful w eliquis 5 bid-had normal echo and normal SE 08/21, ekg: nsr prwp ns t- 4 trops all negative- echo today: normal lv function, r heart of normal size and function/pa normal too Past Medical History Past Medical History: Arthritis, Hypertension and Kidney Stones Past Surgical History Surgical History: , Hysterectomy and Ortho Surgery Family History Family Medical History: Diabetes Mellitus, Cancer and Hypertension Social History Does patient currently use any type of tobacco product: No Have you used tobacco products in the last 12 months: No Type of Tobacco Use: None Does any household member use tobacco: No Alcohol Use: None Drug Use: None Medications Home Medications: No Known Allergies Allergy (Verified 01/01/24 13:28) Physical Exam Vital Signs: Vital Signs Temperature 98.4 F Pulse Rate 86 Pulse Rate 87 Pulse Rate 81 Pulse Rate 80 Pulse Rate 85 Pulse Rate 79 Pulse Rate 80 Pulse Rate 80 Pulse Rate 78 Pulse Rate 85 Pulse Rate 82 Pulse Rate 79 Pulse Rate 81 Pulse Rate 79 Pulse Rate 78 Pulse Rate 84 Pulse Rate 80 Pulse Rate 83 Pulse Rate 80 Pulse Rate 78 Pulse Rate 84 Pulse Rate 81 Pulse Rate 89 Pulse Rate 91 Pulse Rate 88 Pulse Rate 76 Pulse Rate 81 Pulse Rate 85 Pulse Rate 65 Pulse Rate 74 Pulse Rate 68 Respiratory Rate 26 Respiratory Rate 26 Respiratory Rate 26 Respiratory Rate 26 Respiratory Rate 21 Respiratory Rate 21 Respiratory Rate 24 Respiratory Rate 18 Respiratory Rate 19 Respiratory Rate 31 Respiratory Rate 21 Respiratory Rate 29 Respiratory Rate 21 Respiratory Rate 28 Respiratory Rate 19 Respiratory Rate 22 Respiratory Rate 21 Respiratory Rate 21 Respiratory Rate 20 Respiratory Rate 22 Respiratory Rate 27 Respiratory Rate 20 Respiratory Rate 20 Respiratory Rate 20 Respiratory Rate 19 Respiratory Rate 15 Respiratory Rate 26 Respiratory Rate 17 Blood Pressure 125/79 Blood Pressure 128/76 Blood Pressure 141/77 Blood Pressure 121/79 Blood Pressure 113/61 Blood Pressure 117/69 O2 Sat by Pulse Oximetry 100 O2 Sat by Pulse Oximetry 100 O2 Sat by Pulse Oximetry 100 O2 Sat by Pulse Oximetry 100 O2 Sat by Pulse Oximetry 99 O2 Sat by Pulse Oximetry 100 O2 Sat by Pulse Oximetry 100 O2 Sat by Pulse Oximetry 100 O2 Sat by Pulse Oximetry 100 O2 Sat by Pulse Oximetry 99 O2 Sat by Pulse Oximetry 100 O2 Sat by Pulse Oximetry 100 O2 Sat by Pulse Oximetry 100 O2 Sat by Pulse Oximetry 99 O2 Sat by Pulse Oximetry 99 O2 Sat by Pulse Oximetry 100 O2 Sat by Pulse Oximetry 100 O2 Sat by Pulse Oximetry 100 O2 Sat by Pulse Oximetry 100 O2 Sat by Pulse Oximetry 100 O2 Sat by Pulse Oximetry 100 O2 Sat by Pulse Oximetry 100 O2 Sat by Pulse Oximetry 100 O2 Sat by Pulse Oximetry 99 O2 Sat by Pulse Oximetry 100 O2 Sat by Pulse Oximetry 98 O2 Sat by Pulse Oximetry 98 O2 Sat by Pulse Oximetry 99 O2 Sat by Pulse Oximetry 100 O2 Sat by Pulse Oximetry 100 O2 Sat by Pulse Oximetry 99 alert ox3 nad clear lungs no jvd/bruits rrr no edema labs: hct 37 PTT on heoarin 73 k 3.2 cr 0.6trop x 3 negative bnp< 5 cxr: bord cm, interstitial infiltrates Plan (1) Pulmonary embolism: Status: Acute Qualifiers: Pulmonary embolism type: unspecified Chronicity: acute Acute cor pulmonale presence: unspecified Qualified Code(s): I26.99 - Other pulmonary embolism without acute cor pulmonale Narrative Support Text: pleuritic cp /sob from PE Plan: iv heparin and get her jong CORD[facility] from [facility] for [facility] meds decision (2) HTN (hypertension): Status: Acute Qualifiers: Hypertension type: primary hypertension Qualified Code(s): I10 - Essential (primary) hypertension (3) History of DVT (deep vein thrombosis): Status: Acute (4) Presence of IVC filter: Status: Acute (5) Positive cardiolipin antibodies: Status: Acute (6) Low blood potassium: Status: Acute Plan: replete K (7) Hypertensive heart disease: Status: Acute Plan: cont amlodipine/hctz but add K
--- NOTE | 2024-01-14 15:08 | EKG ---
Test Reason : Chest Pain Blood Pressure : */* mmHG Vent. Rate : 80 BPM Atrial Rate : 80 BPM P-R Int : 138 ms QRS Dur : 74 ms QT Int : 426 ms P-R-T Axes : 67 37 11 degrees QTc Int : 491 ms Normal sinus rhythm Prolonged QT Abnormal ECG When compared with ECG of 14-JAN-2024 07:52, Nonspecific T wave abnormality has replaced inverted T waves in Anterior leads Confirmed by Arjun Jean Baptiste MD ([id number]) on 01/15/2024 7:26:31 AM Referred By: Confirmed By: Arjun Jean Baptiste MD
[2024-01-14] MEDS: K-DUR TAB 20 MEQ PO SCH (16:50)
--- NOTE | 2024-01-15 01:20 | DR.CONSULT ---
CONSULT Consultation for Day of: Date: 01/14/24 Chief Complaint Chief Complaint: SOB, chest pain, CTA of chest demonstrating right main pulmonary artery embolus Allergies Allergies Allergy/AdvReac Type Severity Reaction Status Date / Time No Known Allergies Allergy Verified 01/01/24 13:28 History of Present Illness History of Present Illness: 48 yo female with history of multiple DVTs(4 left leg, 3 right leg) secondary to anticardiolipin antibodies , as well as diagnosis of MGUS(monoclonal gammopathy of unknown origin) , known vena caval filter who is on Eliquis daily and presented to her PCP c/o SOB and chest pain. CTA of chest showed right main pulmonary artery embolus described as low burden with RV/LV ratio of 0.8 consistent with no right heart strain. Seeh in consultation by Dr. Jean Baptiste of cardiology. ECHO showed EF of 70% with no reported evidence of right heart stain. Currently on heparin drip. Recent US of legs showed no DVT currently. Past Medical History Past Medical History: Arthritis, Hypertension and Kidney Stones Additional Medical History: as above Past Surgical History Surgical History: , Hysterectomy and Ortho Surgery Family History Family Medical History: Diabetes Mellitus, Cancer and Hypertension Social History Does patient currently use any type of tobacco product: No Have you used tobacco products in the last 12 months: No Type of Tobacco Use: None Does any household member use tobacco: No Alcohol Use: None Drug Use: None Medications Home Medications: No Known Allergies Allergy amlodipine 10 mg daily Eliquis 5 mg BID HCTZ 25 mg daily KCL 20 mEq daily Review of Systems Constitutional: See HPI Eyes: No Symptoms Reported ENT: No Symptoms Reported Respiratory: See HPI Cardiovascular: Chest Pain Gastrointestinal: No Symptoms Reported Genitourinary: No Symptoms Reported Musculoskeletal: No Symptoms Reported Skin: No Symptoms Reported Neurological: No Symptoms Reported Physical Exam Vital Signs: Vital Signs Temperature 98.1 F Temperature 98.9 F Temperature 98.5 F Pulse Rate 72 Pulse Rate 77 Pulse Rate 79 Pulse Rate 89 Pulse Rate 87 Pulse Rate 86 Pulse Rate 81 Pulse Rate 92 Pulse Rate 87 Pulse Rate 79 Pulse Rate 81 Pulse Rate 80 Pulse Rate 83 Pulse Rate 80 Pulse Rate 87 Pulse Rate 82 Pulse Rate 83 Respiratory Rate 22 Respiratory Rate 23 Respiratory Rate 20 Respiratory Rate 24 Respiratory Rate 25 Respiratory Rate 26 Respiratory Rate 22 Respiratory Rate 33 Respiratory Rate 21 Respiratory Rate 23 Respiratory Rate 21 Respiratory Rate 25 Respiratory Rate 23 Respiratory Rate 30 Respiratory Rate 24 Respiratory Rate 28 Blood Pressure 127/69 Blood Pressure 117/73 Blood Pressure 127/79 Blood Pressure 118/70 Blood Pressure 121/71 Blood Pressure 121/59 Blood Pressure 114/58 Blood Pressure 118/71 O2 Sat by Pulse Oximetry 100 O2 Sat by Pulse Oximetry 100 O2 Sat by Pulse Oximetry 100 O2 Sat by Pulse Oximetry 99 O2 Sat by Pulse Oximetry 99 O2 Sat by Pulse Oximetry 99 O2 Sat by Pulse Oximetry 100 O2 Sat by Pulse Oximetry 100 O2 Sat by Pulse Oximetry 100 O2 Sat by Pulse Oximetry 100 O2 Sat by Pulse Oximetry 99 O2 Sat by Pulse Oximetry 98 O2 Sat by Pulse Oximetry 100 O2 Sat by Pulse Oximetry 99 O2 Sat by Pulse Oximetry 98 O2 Sat by Pulse Oximetry 99 O2 Sat by Pulse Oximetry 100 on 2 liters oxygen Oriented: Normal, Time, Person and Place Eyes: Normal Ear: Normal Nose: Normal Throat: Normal Respiratory: Clear Throughout Cardiovascular: Normal : Normal Auscultation: Bowel Sounds: Normal Palpation: Normal Tenderness: Normal Skin: Normal Musculoskeletal: Normal Psychiatric: Normal Mood Description: Calm Affect: Normal Speech Pattern: Clear and Appropriate Plan (1) Pulmonary embolism: Status: Acute Qualifiers: Acute cor pulmonale presence: unspecified Chronicity: acute Pulmonary embolism type: unspecified Qualified Code(s): I26.99 - Other pulmonary embolism without acute cor pulmonale Narrative Support Text: Patient with pulmonary embolus, low clot burden, No evidence of right heart strain This id best treated with Heparin drip. EKOS catheter not indicated here. I will follow . (2) HTN (hypertension): Status: Acute Qualifiers: Hypertension type: primary hypertension Qualified Code(s): I10 - Essential (primary) hypertension (3) History of DVT (deep vein thrombosis): Status: Acute (4) Presence of IVC filter: Status: Acute (5) Positive cardiolipin antibodies: Status: Acute (6) Low blood potassium: Status: Acute (7) Hypertensive heart disease: Status: Acute
[2024-01-15 05:25] LABS: BASOPHILS # (AUTO) 0.1 X10^3/uL (0.0-0.1); BASOPHILS % (AUTO) 0.9 % (0.2-1.0); EOSINOPHILS # (AUTO) 0.5 x10^3/uL (0.0-0.2); EOSINOPHILS % (AUTO) 7.3 % (0.9-2.9); HEMATOCRIT 35.8 % (36.0-47.0); HEMOGLOBIN 11.5 g/dL (12.0-16.0); LYMPHOCYTES # (AUTO) 1.5 X10^3/uL (1.3-2.9); LYMPHOCYTES % (AUTO) 23.8 % (21.0-51.0); MEAN CORPUSCULAR HEMOGLOBIN 27.2 pg (27.0-34.0); MEAN CORPUSCULAR VOLUME 84.8 fL (80.0-100.0); MEAN PLATELET VOLUME 7.4 fL (7.4-11.0); MONOCYTES # (AUTO) 0.6 x10^3/uL (0.3-0.8); MONOCYTES % (AUTO) 9.6 % (0.0-13.0); NEUTROPHILS # (AUTO) 3.8 x10^3/uL (2.2-4.8); NEUTROPHILS % (AUTO) 58.4 % (42.0-75.0); PLATELET COUNT 311 X10^3/uL (150.0-450.0); RED BLOOD COUNT 4.22 X10^6/uL (3.5-5.4); RED CELL DISTRIBUTION WIDTH 16.1 % (11.6-16.5); WHITE BLOOD COUNT 6.5 X10^3/uL (3.6-10.0)
[2024-01-15 05:43] LABS: ALANINE AMINOTRANSFERASE 12 Units/L (12-78); ALBUMIN 2.6 g/dL (3.4-5.0); ALKALINE PHOSPHATASE 43 Units/L (46-116); ASPARTATE AMINO TRANSFERASE 10 Units/L (15-37); BLOOD UREA NITROGEN 10 mg/dL (7-18); CALCIUM 8.1 mg/dL (8.5-10.1); CARBON DIOXIDE 29.2 mmol/L (21-32); CHLORIDE 105 mmol/L (98-107); COR CA(FOR HYPOALB) 9.2 mg/dL (8.5-10.1); CREATININE 0.71 mg/dL (0.55-1.02); GLUCOSE 92 mg/dL (65-99); POTASSIUM 3.3 mmol/L (3.5-5.1); SODIUM 142 mmol/L (136-145); TOTAL PROTEIN 6.5 g/dL (6.4-8.2); eGFR NON BLACK RACES > 60 (>60)
[2024-01-15] MEDS ORDERED: CONSULT PHARMACY - POTASSIUM & MAGNESIUM XX SCH (07:00)
--- NOTE | 2024-01-15 07:45 | RAD ---
EXAM:Portable chestHISTORY:Monoclonal gammopathyCOMPARISON:01/13/2024FINDINGS: Patient is rotated to the left. Heart is upper limits normal in size. No congestive heart failure identified. No acute infiltrates or pleural effusions identified. Bony thorax is unremarkable with exception of thoracic dextroscoliosis.IMPRESSION:No acute infiltrates or congestive heart failure on today's examinationTHIS IS AN ELECTRONICALLY VERIFIED FINAL REPORT01/15/2024 7:33 AM - Electronically signed by Garo Henry MD
[2024-01-15] MEDS: COLACE CAP 100 MG PO PRN (09:38)
[2024-01-15] MEDS: MILK OF MAGNESIA PO PRN (09:39)
--- NOTE | 2024-01-15 10:43 | PCM.PROG ---
Progress Note Progress Note for Day of Date of Exam: 01/15/24 Subjective Subjective: Pt is a 48y/o female with a PMH of recurrent DVT, IVC filter, HTN, rheumatoid arthritis, antiphospholipid antibodies and MGUS that is admitted for pulmonary embolism. This morning she reports feeling a little better. Patient is in the ICU and on a heparin drip. Vascular surgery consulted-Dr Salomon, pt not a candidate for EKOS. Cardiology consulted-Dr Jean Baptiste, will contact patient's mems integration engineer from [place] about anticoagulation recommendations. No acute events overnight. Labs/imaging reviewed. - WBC 6.5, hemoglobin 11.5, platelets 311, sodium 142, potassium 3.3, creatinine 0.71, glucose 92, Mag 2.2 - CTA report from [place] scanned in: solitary thrombus in the distal right main pulmonary artery/segmental branch RLL. Clot burden low. - CT brain: no acute intracranial findings. - CXR: no acute infiltrates Plan: continue ICU care, continue heparin drip as per protocol. Continue Zosyn, AIT panel pending. Replace electrolytes as per protocol. F/u cardiology recommendations. Monitor AM labs/imaging. Time spent for clinical assessment, reviewing labs/imaging, physical exam, decision making and documentation greater than 45 mins. Past Medical Family Social History Allergies: Allergies No Known Allergies Allergy (Verified 01/01/24 13:28) Review of Systems ROS changes noted: see HPI Vital Signs and I&O's Vital Signs: Vital Signs Temperature 97.6 F Temperature 98.1 F Pulse Rate 80 Pulse Rate 77 Pulse Rate 77 Pulse Rate 66 Pulse Rate 67 Pulse Rate 77 Pulse Rate 71 Pulse Rate 68 Respiratory Rate 20 Respiratory Rate 18 Respiratory Rate 19 Respiratory Rate 18 Respiratory Rate 18 Respiratory Rate 16 Respiratory Rate 18 Blood Pressure 129/71 Blood Pressure 121/70 Blood Pressure 105/55 Blood Pressure 111/56 Blood Pressure 118/71 Blood Pressure 131/70 Blood Pressure 128/61 O2 Sat by Pulse Oximetry 100 O2 Sat by Pulse Oximetry 100 O2 Sat by Pulse Oximetry 100 O2 Sat by Pulse Oximetry 98 O2 Sat by Pulse Oximetry 98 O2 Sat by Pulse Oximetry 100 O2 Sat by Pulse Oximetry 100 O2 Sat by Pulse Oximetry 100 Intake and Output: Intake & Output 01/12/24 01/13/24 01/14/24 01/15/24 23:59 23:59 23:59 23:59 Intake Total 324 / 324 1282 / 1282 294 / 294 Balance 324 / 324 1282 / 1282 294 / 294 Physical Exam Oriented: Normal, Time, Person and Place Eyes: Normal Ear: Normal Nose: Normal Throat: Normal Respiratory: Normal Cardiovascular: Normal : Normal Auscultation: Bowel Sounds: Normal Tenderness: Normal Skin: Normal Musculoskeletal: Normal Psychiatric: Normal Mood Description: Calm Affect: Normal Speech Pattern: Clear and Appropriate Laboratory and Diagnostics 01/15/24 05:00 01/15/24 05:00 Labs: Laboratory WBC 6.5 X10^3/uL (3.6-10.0) 01/15/24 05:00 RBC 4.22 X10^6/uL (3.5-5.4) 01/15/24 05:00 Hgb 11.5 g/dL (12.0-16.0) L 01/15/24 05:00 Hct 35.8 % (36.0-47.0) L 01/15/24 05:00 MCV 84.8 fL (80.0-100.0) 01/15/24 05:00 MCH 27.2 pg (27.0-34.0) 01/15/24 05:00 MCHC 32.0 g/dL (33.0-35.0) L 01/15/24 05:00 RDW 16.1 % (11.6-16.5) 01/15/24 05:00 Plt Count 311 X10^3/uL (150.0-450.0) 01/15/24 05:00 MPV 7.4 fL (7.4-11.0) 01/15/24 05:00 Neut % (Auto) 58.4 % (42.0-75.0) 01/15/24 05:00 Lymph % (Auto) 23.8 % (21.0-51.0) 01/15/24 05:00 [place] % (Auto) 9.6 % (0.0-13.0) 01/15/24 05:00 Eos % (Auto) 7.3 % (0.9-2.9) H 01/15/24 05:00 Baso % (Auto) 0.9 % (0.2-1.0) 01/15/24 05:00 Neut # (Auto) 3.8 x10^3/uL (2.2-4.8) 01/15/24 05:00 Lymph # (Auto) 1.5 X10^3/uL (1.3-2.9) 01/15/24 05:00 [place] # (Auto) 0.6 x10^3/uL (0.3-0.8) 01/15/24 05:00 Eos # (Auto) 0.5 x10^3/uL (0.0-0.2) H 01/15/24 05:00 Baso # (Auto) 0.1 X10^3/uL (0.0-0.1) 01/15/24 05:00 Absolute Nucleated RBC 0.0 /100WBC 01/15/24 05:00 PT 13.1 SECONDS (11.8-14.3) 01/13/24 18:30 INR Target Range - 01/13/24 18:30 INR 1.01 (0.8-1.3) 01/13/24 18:30 APTT 93.5 SECONDS (22.9-36.5) H 01/15/24 05:00 PTT Comment - 01/15/24 05:00 Sodium 142 mmol/L (136-145) 01/15/24 05:00 Corrected Sodium TNP 01/15/24 05:00 Potassium 3.3 mmol/L (3.5-5.1) L 01/15/24 05:00 Chloride 105 mmol/L (98-107) 01/15/24 05:00 Carbon Dioxide 29.2 mmol/L (21-32) 01/15/24 05:00 BUN 10 mg/dL (7-18) 01/15/24 05:00 Creatinine 0.71 mg/dL (0.55-1.02) 01/15/24 05:00 Est GFR (MDRD) Af Amer > 60 (>60) 01/15/24 05:00 Est GFR (MDRD) Non-Af > 60 (>60) 01/15/24 05:00 Glucose 92 mg/dL (65-99) 01/15/24 05:00 Calcium 8.1 mg/dL (8.5-10.1) L 01/15/24 05:00 Corrected Calcium 9.2 mg/dL (8.5-10.1) 01/15/24 05:00 Magnesium 2.2 mg/dL (2.0-2.9) 01/15/24 05:00 Total Bilirubin 0.40 mg/dL (0.2-1.0) 01/15/24 05:00 AST 10 Units/L (15-37) L 01/15/24 05:00 ALT 12 Units/L (12-78) 01/15/24 05:00 Alkaline Phosphatase 43 Units/L (46-116) L 01/15/24 05:00 Creatine Kinase 75 Units/L (26-192) 01/14/24 02:40 Troponin I High Sens 5.7 ng/L (4.0-60.0) 01/14/24 02:40 B-Natriuretic Peptide < 5.0 pg/mL (0-79) 01/13/24 18:30 Total Protein 6.5 g/dL (6.4-8.2) 01/15/24 05:00 Albumin 2.6 g/dL (3.4-5.0) L 01/15/24 05:00 Globulin 3.9 g/dL (2.5-4.5) 01/15/24 05:00 Albumin/Globulin Ratio 0.7 Ratio (1.1-2.1) L 01/15/24 05:00 Plan (1) Pulmonary embolism: Status: Acute Qualifiers: Pulmonary embolism type: unspecified Chronicity: acute Acute cor pulmonale presence: unspecified Qualified Code(s): I26.99 - Other pulmonary embolism without acute cor pulmonale (2) HTN (hypertension): Status: Acute Qualifiers: Hypertension type: primary hypertension Qualified Code(s): I10 - Essential (primary) hypertension (3) History of DVT (deep vein thrombosis): Status: Acute (4) Presence of IVC filter: Status: Acute (5) Positive cardiolipin antibodies: Status: Acute (6) Low blood potassium: Status: Acute (7) Hypertensive heart disease: Status: Acute
[2024-01-15] MEDS: K-DUR TAB 20 MEQ PO SCH (11:46)
--- NOTE | 2024-01-15 13:27 | NOTE.SOAP ---
Soap Note Note for Day of Date of Exam: 01/15/24 Subjective Data Subjective Data: no c/o- discussed case with [facility]- they wanted 3 days of iv heparin followed by lovenox 1mg/kg ( 180 lbs = 80 mg/kg q 12)- they will see her in f/u to consider pradaxa- pt has done this before- will get nursing to help her Objective Data Objective Data: 136/84 P80 labs: hct 35 plt 311 k 3.3 PTT 96-93 Assessment Assessment: hypercoagulable/PE despite eliquis/recent covid Plan Plan: 72 hours iv heparin- switch to lovenox in am- 2 hours after lovenox shot: ok to stop heprain- teach her how to give- f/u filippo in 7-10 days
--- NOTE | 2024-01-15 15:02 | NOTE.SOAP ---
Soap Note Note for Day of Date of Exam: 01/15/24 Subjective Data Subjective Data: Patient doing welll, 99% oxygen saturation on Room air , Objective Data Temperature: 97.6 F Pulse Rate: 87 Respiratory Rate: 23 Blood Pressure: 117/67 O2 Sat by Pulse Oximetry: 98 Objective Data: as above , resting comfortably Assessment Assessment: Low burden PE , Doing well, no need for EKOS, May discharge from my standpoint at any time , f/u with her quantitative strategy analyst.
[2024-01-16 05:30] LABS: BASOPHILS # (AUTO) 0.1 X10^3/uL (0.0-0.1); BASOPHILS % (AUTO) 1.2 % (0.2-1.0); EOSINOPHILS # (AUTO) 0.4 x10^3/uL (0.0-0.2); EOSINOPHILS % (AUTO) 6.1 % (0.9-2.9); HEMOGLOBIN 11.4 g/dL (12.0-16.0); LYMPHOCYTES # (AUTO) 1.4 X10^3/uL (1.3-2.9); LYMPHOCYTES % (AUTO) 21.5 % (21.0-51.0); MEAN CORPUSCULAR HEMOGLOBIN 27.5 pg (27.0-34.0); MEAN CORPUSCULAR HGB CONC 32.5 g/dL (33.0-35.0); MEAN CORPUSCULAR VOLUME 84.6 fL (80.0-100.0); MEAN PLATELET VOLUME 7.6 fL (7.4-11.0); MONOCYTES # (AUTO) 0.7 x10^3/uL (0.3-0.8); MONOCYTES % (AUTO) 10.4 % (0.0-13.0); NEUTROPHILS # (AUTO) 3.9 x10^3/uL (2.2-4.8); NEUTROPHILS % (AUTO) 60.8 % (42.0-75.0); PLATELET COUNT 278 X10^3/uL (150.0-450.0); RED BLOOD COUNT 4.14 X10^6/uL (3.5-5.4); RED CELL DISTRIBUTION WIDTH 16.2 % (11.6-16.5); WHITE BLOOD COUNT 6.5 X10^3/uL (3.6-10.0)
[2024-01-16 05:57] LABS: ALANINE AMINOTRANSFERASE 15 Units/L (12-78); ALBUMIN 2.6 g/dL (3.4-5.0); ALKALINE PHOSPHATASE 44 Units/L (46-116); ASPARTATE AMINO TRANSFERASE 11 Units/L (15-37); BLOOD UREA NITROGEN 10 mg/dL (7-18); CALCIUM 7.9 mg/dL (8.5-10.1); CARBON DIOXIDE 28.3 mmol/L (21-32); CHLORIDE 105 mmol/L (98-107); CREATININE 0.74 mg/dL (0.55-1.02); GLUCOSE 91 mg/dL (65-99); MAGNESIUM 2.3 mg/dL (2.0-2.9); POTASSIUM 3.8 mmol/L (3.5-5.1); SODIUM 140 mmol/L (136-145); TOTAL PROTEIN 6.5 g/dL (6.4-8.2); eGFR NON BLACK RACES > 60 (>60)
[2024-01-16 09:02] VITALS: TEMP 98.5
[2024-01-16] MEDS: LOVENOX INJ 80 MG SYR SC SCH (09:51)
[2024-01-16 13:13] VITALS: BP 117/66; PULSE 83; RESP 23; O2SAT 99
== END 2024-01-16 13:45 | disposition home or self-care (01) ==
LOC: ICU 17:33 → INTOOBSV 17:33
PROVIDERS: ADMIT Internal Medicine; ATTEND Internal Medicine
DX: D47.2 Monoclonal gammopathy; R20.0 Anesthesia of skin; R00.0 Tachycardia, unspecified; R79.1 Abnormal coagulation profile; R07.89 Other chest pain; I34.0 Nonrheumatic mitral (valve) insufficiency; I10 Essential (primary) hypertension; Z95.828 Presence of other vascular implants and grafts; R60.0 Localized edema; R76.0 Raised antibody titer; R06.09 Other forms of dyspnea; Z86.718 Personal history of other venous thrombosis and embolism; E87.6 Hypokalemia; R51.9 Headache, unspecified; R53.1 Weakness; I26.99 Other pulmonary embolism without acute cor pulmonale; R06.02 Shortness of breath